=== PATIENT | male | born 1960 | race Hispanic/Latino ===

== ENCOUNTER 2021-05-04 12:37 | Emergency (ER) | payer SELFPAY ==
[2021-05-04] MEDS ORDERED: SODIUM CHLORIDE 0.9% 1000 ML 1,000 ML IV ONE (12:54)
[2021-05-04] MEDS ORDERED: ONDANSETRON 4 MG/2 ML INJ IV ONE (12:54)
--- NOTE | 2021-05-04 13:01 | Emergency Department Report ---
ED Altered Mental Status HPI - General Chief Complaint: Nausea/Vomiting/Diarrhea Stated Complaint: N/V DIAPHORESIS PUI?: No Time Seen by Provider: 05/04/21 12:51 Source: patient, EMS Mode of arrival: Stretcher Limitations: No Limitations - History of Present Illness Initial Comments: CC: vomiting, altered mental status HPI: This is a 60 yo male with hx of mechanical MVR noncompliant with warfarin who presents with nausea vomiting sudden onset while painting. EMS observed diaphoresis. told EMS that he takes edible THC gummies at night. He only drank coca cola and cookies last night. Patient is altered. He appears lethargic. He answers limited questions with head motions. Time of onset of symptoms 30 minutes prior to arrival, approximately 12 PM. According to , patient had stroke symptoms December 2018. He was confused with inability to speak. He refused medical care at that time. Symptoms resolv ed after night sleep. According to patient only drinks alcohol on rare occasions. MD Complaint: altered mental status, decreased responsiveness, other (Vomiting) -: Sudden, This afternoon Severity: moderate Consistency of Symptoms: waxing and waning Context: other (1 informed EMS that he takes edible Gummies) Associated Symptoms: nausea/vomiting - Related Data Allergies Allergy/AdvReac Type Severity Reaction Status Date / Time Penicillins Allergy Hives Verified 05/04/21 12:56 ED Review of Systems ROS: Stated complaint: N/V DIAPHORESIS Other details as noted in HPI Comment: Unobtainable due to pts medical conditions (Altered mental status) ED Past Medical Hx - Past Medical History Previous Medical History?: Yes Additional medical history: MVR - Surgical History Past Surgical History?: Yes Hx Open Heart Surgery: Yes - Family History Family history: hypertension - Social History Substance Use Type: Marijuana ED Physical Exam - General Limitations: No Limitations, Altered Mental Status General appearance: lethargic, other (Patient keeps eyes closed, he does make eye contact with repetitive questioningFrequent cough, gurgling, sounds congested) - Head Head exam: Present: atraumatic, normocephalic - Eye Eye exam: Present: normal appearance - ENT ENT exam: Present: mucous membranes moist - Neck Neck exam: Present: normal inspection, full ROM - Respiratory Respiratory exam: Present: decreased breath sounds. Absent: wheezes, rales, rhonchi - Cardiovascular Cardiovascular Exam: Present: regular rate, normal rhythm, normal heart sounds. Absent: systolic murmur, diastolic murmur, rubs, gallop - GI/Abdominal GI/Abdominal exam: Present: soft, normal bowel sounds. Absent: distended, tenderness, guarding, rebound - Rectal Rectal exam: Present: deferred - Extremities Exam Extremities exam: Present: normal inspection - Neurological Exam Neurological exam: Present: altered, other (Will follow limited commands no focal deficit no facial droop) - Psychiatric Psychiatric exam: Present: flat affect - Skin Skin exam: Present: warm, dry, intact, normal color. Absent: rash - Assessment Assessment Interval: Baseline - Level of Consciousness 1a. Level of Consciousness: resp stimuli/obtunded - LOC Questions 1b. LOC Questions: aphasic - LOC Command 1c. LOC Commands: performs tasks correctly - Best Gaze 2. Best Gaze: normal - Visual 3. Visual: no visual loss - Facial Palsy 4. Facial Palsy: normal symmetrical movement - Motor Arm 5a. Motor Arm Left: no drift 5b. Motor Arm Right: no drift - Motor Leg 6a. Motor Leg Left: no drift 6b. Motor Leg Right: no drift - Limb Ataxia 7. Limb Ataxia: absent - Sensory 8. Sensory: normal - Best Language 9. Best Language: mute/global aphasia - Dysarthria 10. Dysarthria: mute/anarrthric - Extinction and Inattention 11. Extinction/Inattention: no abnormality - Scoring Total Score: 9 Stroke Severity: Moderate Stroke ED Course Vital Signs 05/04/21 05/04/21 05/04/21 12:56 13:44 14:00 Temperature 98.0 F 94.4 F L Pulse Rate 67 70 70 Pulse Rate [ Right Arm] Respiratory 12 15 9 L Rate Respiratory Rate [Right Arm ] Blood Pressure 122/83 Blood Pressure [Right Arm] Blood Pressure 128/85 126/94 [Right] O2 Sat by Pulse 97 98 93 Oximetry O2 Sat by Pulse Oximetry [ Right Arm] 05/04/21 05/04/21 05/04/21 16:38 16:53 17:08 Temperature Pulse Rate 63 62 66 Pulse Rate [ Right Arm] Respiratory 14 12 9 L Rate Respiratory Rate [Right Arm ] Blood Pressure Blood Pressure [Right Arm] Blood Pressure 120/81 113/72 108/67 [Right] O2 Sat by Pulse 98 98 100 Oximetry O2 Sat by Pulse Oximetry [ Right Arm] 05/04/21 05/04/21 17:23 17:38 Temperature Pulse Rate 74 Pulse Rate [ 74 Right Arm] Respiratory 12 Rate Respiratory 10 L Rate [Right Arm ] Blood Pressure Blood Pressure 122/74 [Right Arm] Blood Pressure 119/83 [Right] O2 Sat by Pulse 98 Oximetry O2 Sat by Pulse 100 Oximetry [ Right Arm] - Reevaluation(s) Reevaluation #2: 05/04/21 13:55 I asked to come to the bedside. Patient will follow commands and answer questions although mumbling to . He does not have any drift of any extremities. He does not have any facial droop. Reevaluation #3: 05/04/21 14:06 Considering patient's change in respiratory status, I have discontinued his IV fluid Reevaluation #4: 05/04/21 15:46 I reassessed patient. He continues to be less responsive. It appears that he has trouble with speech and dysarthria. He does not have facial droop. He is moving all extremities. informed me that he may have a diagnosis of multiple sclerosis. She obtained this information from his ex-. Reevaluation #5: 05/04/21 16:07 I asked charge nurse to mix TPA alteplase. I ordered TPA according to consultation with teleneurologist. - Consultations Consultation #1: 05/04/21 16:30 Patient was taken emergently to CT for angiogram of the head and neck while TPA was being mixed. Consultation #2: 05/04/21 17:25 I spoke with teleneurologist Dr. Bee who agreed that patient needs to be transferred to a center capable of neuro intervention. I personally paged acute stroke attending at [facility]. Consultation #3: 05/04/21 17:31 Acute CVA requiring TPA. Patient resented with decreased level consciousness, dysarthria, mute aphasia. According to the teleneurologist NIH stroke scale 24. Patient received TPA within 4.5 hours. With basal artery occlusion, Dr. Bee recommended transfer to center capable of endovascular therapy. - Intubation Time Out Performed: Yes Sedative: Etomidate Mg Given: 20 Paralytic: Succinylcholine Mg Given: 150 Laryngoscope: Lissy Size: 4 ET Tube Size: 8 Tube Secured Depth (cm): 24 Tube Secured Location: teeth Tube Placement Confirmation: visualized tube passing t Patient Tolerated Procedure: well Intubation Complications: none - Lab Data Result diagrams: 05/04/21 13:20 05/04/21 13:20 Lab Results 05/04/21 05/04/21 05/04/21 Range/Units 13:20 13:20 13:20 WBC 13.1 H (4.5-11.0) K/mm3 RBC 4.60 (3.65-5.03) M/mm3 Hgb 12.6 (11.8-15.2) gm/dl Hct 38.6 (35.5-45.6) % MCV 84 (84-94) fl MCH 27 L (28-32) pg MCHC 33 (32-34) % RDW 15.1 (13.2-15.2) % Plt Count 244 (140-440) K/mm3 Lymph % (Auto) 14.4 (13.4-35.0) % Sierra % (Auto) 5.9 (0.0-7.3) % Eos % (Auto) 0.5 (0.0-4.3) % Baso % (Auto) 0.6 (0.0-1.8) % Lymph # (Auto) 1.9 (1.2-5.4) K/mm3 Sierra # (Auto) 0.8 (0.0-0.8) K/mm3 Eos # (Auto) 0.1 (0.0-0.4) K/mm3 Baso # (Auto) 0.1 (0.0-0.1) K/mm3 Seg Neutrophils % 78.6 H (40.0-70.0) % Seg Neutrophils # 10.3 H (1.8-7.7) K/mm3 PT 13.4 (12.2-14.9) Sec. INR 0.96 (0.87-1.13) APTT 21.6 L (24.2-36.6) Sec. VBG pH (7.320-7.420) Sodium 144 (137-145) mmol/L Potassium 4.3 (3.6-5.0) mmol/L Chloride 107.1 H (98-107) mmol/L Carbon Dioxide 20 L (22-30) mmol/L Anion Gap 21 mmol/L BUN 28 H (9-20) mg/dL Creatinine 1.4 H (0.8-1.3) mg/dL Estimated GFR 52 ml/min BUN/Creatinine Ratio 20 % Glucose 146 H (75-100) mg/dL Calcium 9.3 (8.4-10.2) mg/dL Total Bilirubin 0.30 (0.1-1.2) mg/dL Direct Bilirubin < 0.2 (0-0.2) mg/dL Indirect Bilirubin 0.1 mg/dL AST 31 (5-40) units/L ALT 28 (7-56) units/L Alkaline Phosphatase 91 (35-129) units/L Troponin T (0.00-0.029) ng/mL NT-Pro-B Natriuret Pep (0-900) pg/mL Total Protein 6.9 (6.3-8.2) g/dL Albumin 4.4 (3.9-5) g/dL Albumin/Globulin Ratio 1.8 % Lipase 32 (13-60) units/L Plasma/Serum Alcohol (0-0.07) % 05/04/21 05/04/21 05/04/21 Range/Units 13:20 13:20 13:25 WBC (4.5-11.0) K/mm3 RBC (3.65-5.03) M/mm3 Hgb (11.8-15.2) gm/dl Hct (35.5-45.6) % MCV (84-94) fl MCH (28-32) pg MCHC (32-34) % RDW (13.2-15.2) % Plt Count (140-440) K/mm3 Lymph % (Auto) (13.4-35.0) % Sierra % (Auto) (0.0-7.3) % Eos % (Auto) (0.0-4.3) % Baso % (Auto) (0.0-1.8) % Lymph # (Auto) (1.2-5.4) K/mm3 Sierra # (Auto) (0.0-0.8) K/mm3 Eos # (Auto) (0.0-0.4) K/mm3 Baso # (Auto) (0.0-0.1) K/mm3 Seg Neutrophils % (40.0-70.0) % Seg Neutrophils # (1.8-7.7) K/mm3 PT (12.2-14.9) Sec. INR (0.87-1.13) APTT (24.2-36.6) Sec. VBG pH 7.314 L (7.320-7.420) Sodium (137-145) mmol/L Potassium (3.6-5.0) mmol/L Chloride (98-107) mmol/L Carbon Dioxide (22-30) mmol/L Anion Gap mmol/L BUN (9-20) mg/dL Creatinine (0.8-1.3) mg/dL Estimated GFR ml/min BUN/Creatinine Ratio % Glucose (75-100) mg/dL Calcium (8.4-10.2) mg/dL Total Bilirubin (0.1-1.2) mg/dL Direct Bilirubin (0-0.2) mg/dL Indirect Bilirubin mg/dL AST (5-40) units/L ALT (7-56) units/L Alkaline Phosphatase (35-129) units/L Troponin T < 0.010 (0.00-0.029) ng/mL NT-Pro-B Natriuret Pep 176.2 (0-900) pg/mL Total Protein (6.3-8.2) g/dL Albumin (3.9-5) g/dL Albumin/Globulin Ratio % Lipase (13-60) units/L Plasma/Serum Alcohol < 0.01 (0-0.07) % - EKG Data -: EKG Interpreted by [facility] EKG shows normal: sinus rhythm, axis, ST-T waves Rate: normal 05/04/21 14:36 EKG: Obtained 1322 EKG interpreted by mt Normal sinus rhythm rate 65 bpm normal axis prolonged QTC no ST elevation nonischemic T wave pattern - Radiology Data Radiology results: report reviewed Patient Name: YOLIE DOUGLASS Gender: Male Date of : 1960 Referring Provider: AURORA HANSEN Organization: [facility] Accession Number: [id number] Requested Date: May 04, 2021 13:11 Report Status: Final Requested Procedure: 1 Procedure Description: XR chest 1V ap Modality: XR Findings Reporting MD: Ariel Dougherty Dictation Time: May 04, 2021 12:33 Print Color Operator: Not available Service Center Manager Date: CHEST 1 VIEW 05/04/2021 1:04 PM INDICATION / CLINICAL INFORMATION: hx of cardiac valve replacement. COMPARISON: None available. FINDINGS: SUPPORT DEVICES: None. HEART / MEDIASTINUM: Prior sternotomy. Multiple calcified lymph nodes noted in the mediastinum and left hilar region. LUNGS / PLEURA: No significant pulmonary or pleural abnormality. No pneumothorax. ADDITIONAL FINDINGS: No significant additional findings. IMPRESSION: 1. No acute findings. Signer Name: Ariel Dougherty MD Signed: 05/04/2021 12:33 PM Workstation Name: [id number] Patient Name: YOLIE DOUGLASS Gender: Male Date of : 1960 Referring Provider: AURORA HANSEN Organization: [facility] Accession Number: [id number] Requested Date: May 04, 2021 12:58 Report Status: Final Requested Procedure: 1 Procedure Description: CT head/brain wo con Modality: CT Findings Reporting MD: Dimas Clark Dictation Time: May 04, 2021 12:18 Print Color Operator: Not available Service Center Manager Date: CT BRAIN: 05/04/2021 INDICATION / CLINICAL INFORMATION: altered mental status. COMPARISON: None available. FINDINGS: BRAIN/INTRACRANIAL STRUCTURES: Unenhanced CT images of the brain demonstrate no evidence of acute intracranial abnormality. Ventricles and sulci are normal in size and shape for a patient of this age. There is no evidence of acute ischemic injury, hemorrhage, or mass. There are no abnormal extra-axial fluid collections. EXTRACRANIAL STRUCTURES: Unremarkable. IMPRESSION: No acute abnormality. All CT scans at this location are performed using dose reduction to ALARA by mt ans of automated exposure control. Signer Name: Dimas Clark MD Signed: 05/04/2021 12:18 PM Workstation Name: [id number] - Medical Decision Making Acute CVA, basilar artery thrombosis: Patient received TPA. NIHSS 24 according to the teleneurologist. At 1730, patient was completely unresponsive. GCS 3. Oxygen saturation decreased to 88%. Patient required RSI. I spoke with [place] attending Dr. Spring. He accepted the patient in transfer to the eighth floor neurology floor for possible emergent endovascular therapy. Patient will be flown via helicopter [facility] to [place]. I updated his [phone]. [facility] team members are here to transport patient to [place] Critical Care Time: Yes Critical care time in (mins) excluding proc time.: 120 Critical care attestation.: If time is entered above; I have spent that time in minutes in the direct care of this critically ill patient, excluding procedure time. 120 minutes of critical care time excluding procedures were used in the care of the patient. I came immediately to the bedside upon patient's arrival. I obtained history from EMS at the bedside. I discussed treatment plan with the nursing team members. I reviewed electronic record. I kept the family member informed. Patient required multiple interventions and reassessments. I was initially concerned for stroke with decreased level of consciousness. Patient required frequent reassessments. I spoke with several consultants in order to coordinate patient's care ED Disposition Clinical Impression: Acute CVA (cerebrovascular accident), Basilar artery thrombosis Disposition: [id number]/TX-70 ANOTHER TYPE HLTHCARE Is pt being admited?: No Does the pt Need Aspirin: No Condition: Critical Referrals: PRIMARY CARE, [Primary Care Provider] - 3-5 Days
--- NOTE | 2021-05-04 13:25 | Cat Scan Report ---
CT BRAIN: 05/04/2021 INDICATION / CLINICAL INFORMATION: altered mental status. COMPARISON: None available. FINDINGS: BRAIN/INTRACRANIAL STRUCTURES: Unenhanced CT images of the brain demonstrate no evidence of acute int racranial abnormality. Ventricles and sulci are normal in size and shape for a patient of this age. There is no evidence of acute ischemic injury, hemorrhage, or mass. There are no abnormal extra-axial fluid collections. EXTRACRANIAL STRUCTURES: Unremarkable. IMPRESSION: No acute abnormality. All CT scans at this location are performed using dose reduction to ALARA by means of automated expos ure control. Signer Name: Dimas Clark MD Signed: 05/04/2021 1:18 PM Workstation Name: [id number]
--- NOTE | 2021-05-04 13:38 | XRay Report ---
CHEST 1 VIEW 05/04/2021 1:04 PM INDICATION / CLINICAL INFORMATION: hx of cardiac valve replacement. COMPARISON: None available. FINDINGS: SUPPORT DEVICES: None. HEART / MEDIASTINUM: Prior sternotomy. Multiple calcified lymph nodes noted in the mediastinum and le ft hilar region. LUNGS / PLEURA: No significant pulmonary or pleural abnormality. No pneumothorax. ADDITIONAL FINDINGS: No significant additional findings. IMPRESSION: 1. No acute findings. Signer Name: Ariel Dougherty MD Signed: 05/04/2021 1:33 PM Workstation Name: [id number]
[2021-05-04 14:11] LABS: Basophils # (Auto) 0.1 K/mm3 (0.0-0.1); Basophils % (Auto) 0.6 % (0.0-1.8); Eosinophils # (Auto) 0.1 K/mm3 (0.0-0.4); Eosinophils % (Auto) 0.5 % (0.0-4.3); Hematocrit 38.6 % (35.5-45.6); Hemoglobin 12.6 gm/dl (11.8-15.2); Lymphocytes # (Auto) 1.9 K/mm3 (1.2-5.4); Lymphocytes % (Auto) 14.4 % (13.4-35.0); Mean Corpuscular HGB Conc 33 % (32-34); Mean Corpuscular Volume 84 fl (84-94); Monocytes # (Auto) 0.8 K/mm3 (0.0-0.8); Monocytes % (Auto) 5.9 % (0.0-7.3); Platelet Count 244 K/mm3 (140-440); Red Cell Distribution Width 15.1 % (13.2-15.2)
[2021-05-04 14:18] LABS: INR 0.96 (0.87-1.13)
[2021-05-04 14:19] LABS: Partial Thromboplastin Time 21.6 Sec. (24.2-36.6)
[2021-05-04 15:29] LABS: Alanine Aminotransferase 28 units/L (7-56); Albumin 4.4 g/dL (3.9-5); BUN/Creatinine Ratio 20; Blood Urea Nitrogen 28 mg/dL (9-20); Calcium 9.3 mg/dL (8.4-10.2); Hemolysis Index 9
[2021-05-04 15:35] LABS: Bilirubin,Direct < 0.2 mg/dL (0-0.2)
[2021-05-04] MEDS ORDERED: SODIUM CHLORIDE 0.9% 50 ML IVPB IV ONE (16:02)
[2021-05-04] MEDS ORDERED: ALTEPLASE 100 MG INJ KIT IV ONE ×2 (16:02)
--- NOTE | 2021-05-04 16:13 | Consultation ---
Medications and Allergies Allergies Allergy/AdvReac Type Severity Reaction Status Date / Time Penicillins Allergy Hives Verified 05/04/21 12:56 Physical Examination - Vital Signs Vital Signs: Vital Signs Temp Pulse Resp BP Pulse Ox 98.0 F 67 12 128/85 97 05/04/21 12:56 05/04/21 12:56 05/04/21 12:56 05/04/21 12:56 05/04/21 12:56 Results - Laboratory Findings CBC and BMP: 05/04/21 13:20 05/04/21 13:20 Abnormal Lab Findings: Abnormal Labs 05/04/21 05/04/21 05/04/21 13:20 13:20 13:20 WBC 13.1 H MCH 27 L Seg Neutrophils % 78.6 H Seg Neutrophils # 10.3 H APTT 21.6 L VBG pH Chloride 107.1 H Carbon Dioxide 20 L BUN 28 H Creatinine 1.4 H Glucose 146 H 05/04/21 13:20 WBC MCH Seg Neutrophils % Seg Neutrophils # APTT VBG pH 7.314 L Chloride Carbon Dioxide BUN Creatinine Glucose Assessment and Plan [facility] Consult Note # Demographics Consult Type: Acute Stroke Level 1 (0-4.5 hrs) Patient Location: Emergency Room First Name: Jerry Last Name: Michele Date of : 1960 Age: 60 Gender: Male Time of Initial Page ( Time): 05/04/2021, 15:46 Time of Return Call ( Time): 05/04/2021, 15:46 # HPI History: 60 yo man with history of "mini stroke", mechancial heart valve, was at work today and reportedly passed out since then has been less responsive. 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 Currently on warfarin however INR is subtherapeutic at 0.9 Last Known Normal: I have collected independent history specific to time last normal or last known well. We have collaborated with the provider and at this time, we have the most current timeline with the information that is available. 1200 noon Possible Thrombolytic candidate: on warfarin or NOAC no intracranial hemorrhage history no recent major surgery no known active major internal bleeding no known blood disorders Currently on warfarin however INR subtherapeutic at 0.9 # Scores Time of exam and NIHSS ( Time): 05/04/2021, 15:51 Level of Consciousness 1a: [2] = Not alert; requires strong or painful stim LOC Questions 1b: [2] = Answers neither correctly LOC Commands 1c: [2] = Performs neither correctly Best Gaze 2: [0] = Normal Visual 3: [0] = No visual loss Facial Palsy 4: [1] = Minor paralysis Motor Arm Left 5a: [3] = No effort against gravity Motor Arm Right 5b: [3] = No effort against gravity Motor Leg Left 6a: [3] = No effort against gravity Motor Leg Right 6b: [3] = No effort against gravity Limb Ataxia 7: [0] = Absent Sensory 8: [0] = Normal Best Language 9: [3] = Mute Dysarthria 10: [2] = Severe dysarthria NIHSS Total: 24 # Exam SBP: 131 DBP: 102 # PMH-FH-SH Past Medical History: hypertension Mechanical heart valve Social History: non-smoker occasional alcohol Medications: anticoagulant Warfarin, Benazepril Allergies: NKDA # Assessment Impression: Ischemic Stroke (Acute) Acute onset of weakness, decreased level of conciousness in setting of mechanical heart valve and subtherapeuetic INR. Symptoms concerning for acute stroke. Discussed risks and benefits with patient's who agreed with tpa. # Plan Thrombolytic/Intervention: IV thrombolytic Thrombolytic Dosing: IV alteplase 0.9 mg/kg, max dose 90 mg; 10% of dose given over 1 minute IVP, remaining 90% given as infusion over 1 hour Time IV Thrombolytic Recommended ( Time): 05/04/2021, 16:11 Target Blood Pressure: SBP < 180 DBP < 105 Labs: hemoglobin A1c lipid panel Imaging: (urgency: STAT): CT Angiogram Head and CT Angiogram Neck AND call back with results if abnormal Imaging: (urgency: routine): MRI Brain without contrast Diagnostic Test: echo with bubble study Therapy/Evaluation: NPO until swallow evaluation PT/OT evaluation speech/swallow consultation DVT Prophylaxis: SCD contraindication Thrombolytic Administration Recommendations: I reviewed the risks/benefits/alternatives of IV thrombolytic therapy with the patient. They understand there is potential of life threatening hemorrhage from IV thrombolysis. I stated that I believe benefits outweighs risk. They wish to proceed with IV thrombolytic therapy. I have collected independent history specific to time last normal or last known well. We have collaborated with the ED provider and at this time, we have the most current timeline with the information that is available. BP goal< 180/105 for 24hrs post Thrombolytic administration Use Labetolol 10-20mg IV prn or Nicardipine gtt to maintain BP parameters No antiplatelets or anticoagulants for next 24 hrs unless indicated for emergent IA procedure or other life threatening situation ICU admission Call back if there is any decline in neurological condition Other: LDL < 70 telemetry monitoring I have discussed my recommendations with the referring provider Additional Recommendations: Stat CTA head and neck, call back with results Disposition: admit # Logistics Telemedicine: Interactive 2 way audio and visual telecommunication technology was utilized during this visit
--- NOTE | 2021-05-04 16:34 | Cat Scan Report ---
CT angio neck INDICATION / CLINICAL INFORMATION: 60 years Male; CODE STROKE [id number] stroke symptoms aphasia dysarthria, [id number] 100ML. TECHNIQUE: Thin cut axial images obtained through the head during IV bolus contrast administration. S agittal, coronal, and 3 plane MIP reconstructions performed by the technologist. NASCET type criteria used evaluate stenoses. All CT scans at this location are performed using CT dose reduction for ALAR A by means of automated exposure control. COMPARISON: None available. FINDINGS: CAROTID ARTERIES: The motion and beam hardening degrade the image quality. There appears be slight re lative a decrease caliber of the right internal carotid artery diffusely which would appear to be dev elopmental. There is no significant focal stenosis involving carotid arteries by NASCET criteria. The carotid bifurcations are widely patent. VERTEBRAL ARTERIES: There is a small focus of calcification at the origin of the left vertebral arter y. However, there is no significant focal stenosis involving vertebral arteries bilaterally. ARCH: There is mild calcification involving the aortic arch. There is no significant stenosis of the origins of the arch vessels. ADDITIONAL FINDINGS: There are scattered a calcified nodes within the mediastinum and hilar regions w hich are likely related to granulomatous disease at. Findings also include a node along the more supe rior right paratracheal region measuring 1.1 cm and short axis dimension. IMPRESSION: There is no CTA evidence of significant stenosis involving carotid or vertebral arteries by NASCET cr iteria. Signer Name: Finesse Hankins MD Signed: 05/04/2021 4:30 PM Workstation Name: [id number]
--- NOTE | 2021-05-04 16:50 | Cat Scan Report ---
CT angio head INDICATION / CLINICAL INFORMATION: 60 years Male; CODE STROKE [id number] stroke symptoms aphasia dysarthia [id number] 100ML. TECHNIQUE: Thin cut axial images obtained through the head during IV bolus contrast administration. S agittal, coronal, and 3 plane MIP reconstructions performed by the technologist. NASCET type criteria used evaluate stenoses. Automated exposure control utilized for radiation reduction purposes. COMPARISON: None available. FINDINGS: INTERNAL CAROTID ARTERIES: There is notable edema hardening artifact, particularly along the skull ba se and resulting from the dental amalgam. 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 There is associated relative small caliber of the distal right internal c arotid artery. However, there is no significant focal stenosis involving the ICAs by NASCET criteria. VERTEBROBASILAR SYSTEM: There is relative hypoplasia the distal right vertebral artery with findings indicative of mild narrowing involving the proximal intracranial segment. There is absence of signal within the distal 4 mm of the basilar artery compatible with occlusion at. However, there is opacification of the left VAN LOADER which appears to be via the left posterior communica ting artery the right communicating artery is not as well visualized though there is contrast opacifi cation within the right VAN LOADER though there is relative decreased caliber compared to the left. CEREBRAL ARTERIES: As noted above, there is hypoplasia of the A1 segment of the right PAT. Otherwise I, there is no clear evidence of significant focal stenosis involving anterior circulation vessels. ANEURYSM: None identified. ADDITIONAL FINDINGS: Remainder of the surrounding soft tissues are grossly normal. 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 However, there is contrast op acification within the posterior cerebral arteries with collateral flow as detailed above. Signer Name: Finesse Hankins MD Signed: 05/04/2021 4:45 PM Workstation Name: [id number]
[2021-05-04] MEDS ORDERED: SUCCINYLCHOLINE CHLORIDE 200 MG/10 ML INJ MDV IV ONE (17:45)
[2021-05-04] MEDS ORDERED: ETOMIDATE 20 MG/10 ML INJ IV ONE ×2 (17:45→22:31)
[2021-05-04 17:49] VITALS: BP 119/83
[2021-05-04] MEDS ORDERED: LIP THERAPY VASELINE TP PRN (17:54)
[2021-05-04] MEDS ORDERED: MINERAL OIL/PETROLATUM, WHITE OPHTH OINT 3.5 GM OU PRN (17:54)
[2021-05-04] MEDS ORDERED: SODIUM CHLORIDE 0.9% 1000 ML 1,000 ML ONE (18:20)
--- NOTE | 2021-05-04 18:24 | Cat Scan Report ---
CT BRAIN: 05/04/2021 1753 hours INDICATION / CLINICAL INFORMATION: altered mental status tpa. COMPARISON: CT brain 05/04/2021 1302 hours FINDINGS: BRAIN/INTRACRANIAL STRUCTURES: Unenhanced CT images of the brain were obtained and compared to the ea rlier exam. There is no evidence of hemorrhage. Some patchy hyperdensity is associated with the upper [place] and [place] dbrain, possibly due to ischemic injury. Hypoattenuation in this level is somewhat difficult to disti nguish from beam hardening artifact associated with the skull base. Supratentorial structures are unremarkable. There is no evidence of hemorrhage. Increased vascular density is present diffusely. This is usually associated with recent vascular cont rast administration. EXTRACRANIAL STRUCTURES: Unremarkable. IMPRESSION: No evidence of hemorrhage. Possible upper brainstem hypoattenuation is described above. All CT scans at this location are performed using dose reduction to ALARA by means of automated expos ure control. Signer Name: Dimas Clark MD Signed: 05/04/2021 6:20 PM Workstation Name: [id number]
[2021-05-04] MEDS ORDERED: SENNOSIDES/DOCUSATE SODIUM 8.6/50 MG TAB FEEDTUBE SCH (22:00)
[2021-05-04] MEDS ORDERED: FAMOTIDINE 20 MG/2 ML INJ IV SCH (22:00)
[2021-05-04] MEDS ORDERED: SUCCINYLCHOLINE CHLORIDE 200 MG/10 ML INJ MDV ONE (22:31)
--- NOTE | 2021-05-06 19:26 | Electrocardiograph Report ---
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
== END 2021-05-04 18:30 | disposition other institution (70) ==
LOC: ED 12:37
DX: I63.02 Cerebral infarction due to thrombosis of basilar artery (principal); F12.90 Cannabis use, unspecified, uncomplicated; Z88.0 Allergy status to penicillin; Z79.899 Other long term (current) drug therapy
CPT/HCPCS: 31500; 36415; 37195; 70450; 70496; 70498; 71045; 80048; 80076; 82805; 83690; 83880; 84484; 85025; 85610; 85730; 93005; 96361; 96374; 99291; 99292; J0330; J2405; J2997; J7030; Q9967; 37212; 80320; G0480; J2704